=== PATIENT | male | born 1960 | race Caucasian/White ===

== ENCOUNTER 2021-06-25 02:12 | Day surgery (SDC) | payer BC, SELFPAY ==
[2021-06-19 09:06] VITALS: BMI 23.6
[2021-06-25 09:46] VITALS: BP 113/75; PULSE 61; RESP 20; TEMP 36.6; O2SAT 95
[2021-06-25] MEDS: LACTATED RINGERS 1,000 ML 150 ML IV CONT (10:00)
--- NOTE | 2021-06-25 10:10 | WPDANESEPPF ---
Anes - Initial Pre Proc Eval Procedure: Operation Date: 06/25/21 10:30 Proposed Procedures p Screening Colonoscopy - Hakan Dallas MD Date/Time: 06/25/21 10:10 Surgeon: Hakan Dallas MD Pre Op Diagnosis: neoplasm screening Patient Data Age: 60 Gender: M Height: 1.83 m Weight: 77 kg Allergies Allergy/AdvReac Type Severity Reaction Status Date / Time No Known Allergies Allergy Unverified 06/25/21 09:47 Home Medications Medication Instructions Recorded Confirmed Type No Home Medications 05/16/21 06/25/21 History Patient hx anesthesia problems: none Family hx anesthesia problems: none Results Review: All pre-operative results and documents have been reviewed as part of the pre-operative evaluation. [facility] Past Medical History Medical History (Updated 06/25/21 @ 10:12 by Ghulam Carey DO) GERD (gastroesophageal reflux disease) Surgical History Surgical History Status post tendon repair R forearm Family History Family History Father Heart disease Sibling Heart disease Mother Heart disease Breast cancer Social History Social History Smoking status: Never smoker Second hand tobacco smoke exposure: No Alcohol intake: current Drinks per week: 14 Substance use: never Substance use type: does not use Living arrangements: with family Gender identity (if verbalized by the patient): Male Sexual Orientation (if Verbalized by the Patient): Straight or Heterosexual Spiritual care concerns: No Anes - Eval Final PreProcedure Day of Procedure 06/25/21 10:10 Patient weight: normal Heart: regular rate and rhythm Lungs: clear to auscultation and normal air movement Airway: Mallampati scale class III Neurological: alert and oriented Last oral intake: >/= 8 hours ASA classification: III Emergent: no Anesthetic plan: proceed Anesthesia type and monitoring: general GIVS and standard monitoring Results Review: All pre-operative results and documents have been reviewed as part of the pre-operative evaluation. Informed Consent: The patient's anesthetic plan and its attendant risks and benefits were discussed with the patient/family/POA. Questions were solicited and answers provided to the satisfaction of the patient/family/POA.
--- NOTE | 2021-06-25 10:58 | PM.HPGS ---
History of Present Illness History of Present Illness Consent: Risks, benefits, and alternatives have been discussed and questions answered. Patient agrees to proceed with procedure. Chief complaint: neoplasm screening Narrative: Triston Aldridge is a 60 year old male here for first screening colonoscopy Review of Systems Constitutional: Constitutional: Denies headache(s) and Denies weakness Eyes: Eyes: Denies blurry vision ENT: Reports Normal hearing present, Denies headache(s) and Denies neck pain Cardiovascular: Cardiovascular: Denies chest pain and Denies dyspnea Respiratory: Respiratory: Denies dyspnea Gastrointestinal: Gastrointestinal: Reports no additional gastrointestinal complaints Genitourinary: Genitourinary: Denies dysuria Musculoskeletal: Musculoskeletal: Denies neck pain Integumentary/Breasts: Skin/Breast: Denies dry skin Neurologic: Reports Normal hearing present, Denies headache(s) and Denies weakness Psychiatric: Psychiatric: Denies anxiety Endocrine: Endocrine: Denies change in body appearance Hematologic/Lymphatic: Hematologic/Lymphatic: Denies easy bleeding Allergic/Immunologic: Allergic/Immunologic: Denies urticaria [facility] Past Medical History Medical History (Updated 06/25/21 @ 10:58 by Hakan Dallas MD) Colon cancer screening GERD (gastroesophageal reflux disease) Surgical History Surgical History Status post tendon repair R forearm Family History Family History Father Heart disease Sibling Heart disease Mother Heart disease Breast cancer Social History Social History Smoking status: Never smoker Second hand tobacco smoke exposure: No Alcohol intake: current Drinks per week: 14 Substance use: never Substance use type: does not use Living arrangements: with family Gender identity (if verbalized by the patient): Male Sexual Orientation (if Verbalized by the Patient): Straight or Heterosexual Spiritual care concerns: No Meds Home Medications and Allergies Home Medications Medication Instructions Recorded Confirmed Type No Home Medications 05/16/21 06/25/21 History Allergies Allergy/AdvReac Type Severity Reaction Status Date / Time No Known Allergies Allergy Unverified 06/25/21 09:47 Exam Const: General: comfortable and no acute distress HENMT: General nose exam: Normal nares present Eyes: General: appearance normal, both eyes and all related structures Neck: Neck: no JVD Resp: Auscultation: clear to auscultation bilaterally Cardio: Rate: regular rate Rhythm: regular rhythm GI: Inspection: non-distended GI Palp: Yes Soft to palpation Skin: General skin exam: normal color Neuro: General: gait normal Speech: normal speech Extrem: General: normal to inspection Psych: Mental Status: mental status grossly normal Assessment and Plan Assessment and plan (1) Colon cancer screening: Code(s): Z12.11 - Encounter for screening for malignant neoplasm of colon Status: Acute Assessment and Plan: colonoscopy
[2021-06-25 11:26] VITALS: BP 93/58; PULSE 61; RESP 18; O2SAT 97
[2021-06-25 11:36] VITALS: BP 104/64; PULSE 60; RESP 16; O2SAT 97
[2021-06-25 11:46] VITALS: BP 110/73; PULSE 53; RESP 15; O2SAT 100
== END 2021-06-25 12:00 | disposition home or self-care (01) ==
PROVIDERS: PCP Family Medicine; Visit Provider Internal Medicine Gastroenterology
PROC: 0DJD8ZZ Inspection of Lower Intestinal Tract, Via Natural or Artificial Opening Endoscopic (ICD-10-PCS; CPT 45378; principal; 2021-06-25 10:30)
DX: Z12.11 Encounter for screening for malignant neoplasm of colon (principal); D12.8 Benign neoplasm of rectum; K63.5 Polyp of colon; K64.8 Other hemorrhoids; K21.9 Gastro-esophageal reflux disease without esophagitis
CPT/HCPCS: 45385; 88305; J2704; J7120

== ENCOUNTER 2022-04-07 15:37 | Emergency (ER) | payer BC, SELFPAY ==
--- NOTE | ~2022-04-07 | XR_ITS ---
EXAMINATION: XR chest 2V Exam Date/Time: 04/07/2022 16:20 CDT HISTORY: WEAKNESS,PAZ,CONFUSSION, CHEST FLUTTERS X FEW DAYS Comparison: None available. RESULT: Lines, tubes, and devices: None. Lungs and pleura: Clear. Cardiomediastinal silhouette: Unremarkable. Other: No acute osseous or upper abdominal finding. IMPRESSION: No acute cardiopulmonary process. Reviewed, dictated and finalized at location K.
--- NOTE | ~2022-04-07 | CT_ITS ---
EXAMINATION: CT brain wo con DATE: 04/07/2022 18:35 INDICATION: Headache . TECHNIQUE: Computed tomography (CT) of the head was performed without intravenous contrast. The mA wa s adjusted according to patient size. Iterative reconstruction technique was employed. The dose-lengt h product was 605.33 mGy-cm. COMPARISON: None FINDINGS: No acute intracranial hemorrhage or extra-axial fluid collection. No hydrocephalus, mass, or herniation. No acute ischemic infarct. Unremarkable dural venous sinus attenuation. No acute osseous abnormality. The aerated spaces are clear. IMPRESSION: No acute intracranial process. Reviewed, dictated and finalized at location K.
[2022-04-07 15:39] VITALS: BP 129/78; PULSE 67; RESP 16; TEMP 36.6; O2SAT 100
--- NOTE | 2022-04-07 15:45 | PC.NURSE ---
PT'S CAME TO STAFF TO REPORTS PT DIDN'T KBOW WHAT SHOE WENT ON WHICH FOOT AND STATES SOMETHING IS WRONG WITH HIM.
--- NOTE | 2022-04-07 15:46 | ECG_ITS ---
Measurements Intervals [place] Rate: 64 P: 65 [place]: 173 QRS: 29 QRSD: 94 T: 77 QT: 353 QTc: 365 Interpretive Statements SINUS RHYTHM NORMAL ECG Electronically Signed On 04-07-2022 23:13:05 CDT by Mehran Samano D.O.
[2022-04-07 16:06] LABS: Basophils Absolute Auto 0.1 K/mm3 (0.0-0.1); Basophils Percent Auto 0.6 % (0.2-1.2); Eosinophils Absolute Auto 0.1 K/mm3 (0-0.3); Eosinophils Percent Auto 1.5 % (0-4.4); Hematocrit 45.2 % (42.0-52.0); Hemoglobin 15.3 g/dL (14.0-18.0); Immature Granulocyte Absolute 0.02 K/mm3 (0.00-0.031); Immature Granulocyte Percent A 0.3 % (0-0.5); Lymphocytes Absolute Auto 2.08 K/mm3 (0.9-3.2); Lymphocytes Percent Auto 26.7 % (18.3-44.2); Mean Corpuscular HGB Conc 33.8 g/dl (32-36); Mean Corpuscular Hemoglobin 29.8 pg (26-34); Mean Corpuscular Volume 88.1 fl (80-100); Mean Platelet Volume 9.2 fl (7.4-10.4); Monocytes Absolute Auto 0.6 K/mm3 (0.1-0.6); Monocytes Percent Auto 7.1 % (2.6-8.5); Neutrophils Percent Auto 63.8 % (45.5-73.1); Platelet Count Result 194 k/mm3 (150-375); Red Blood Count 5.13 M/mm3 (4.6-6.20); Red Cell Distribution Width 11.9 % (11.5-14.5); White Blood Count 7.8 K/mm3 (4.5-10.0)
[2022-04-07 16:14] LABS: Alanine Aminotransferase 28 U/L (6-50); Albumin Level 4.6 g/dL (3.5-5.1); Alkaline Phosphatase 86 U/L (38-126); Anion Gap 5 mmol/L (8-16); Aspartate Amino Transferase 31 U/L (17-59); Bilirubin,Total 0.6 mg/dL (0.2-1.3); Blood Urea Nitrogen 21 mg/dL (9-20); Carbon Dioxide 29 mmol/L (22-30); Chloride 104 mmol/L (98-107); Estimated Glomerular Filt Rate > 60; Glucose 105 mg/dL (65-110); Potassium 3.9 mmol/L (3.4-5.0); Sodium 138 mmol/L (137-145)
[2022-04-07 16:47] LABS: SARS-CoV-2 RNA PCR Negative
--- NOTE | 2022-04-07 17:40 | ED.HA ---
HPI - Headache General Chief Complaint: Headache Stated Complaint: memory issues x weeks Time Seen by Provider: 04/07/22 17:39 Source: patient Mode of arrival: ambulatory Limitations: no limitations History of Present Illness HPI Narrative: 61 years old white male complaining of uncomfortable pain at the nasal bridge all the way through to the back of his head started 2 weeks ago, constant, 3 out of 10, worse with thinking and using his brain, better on aspirin. Patient 's report that patient lost his weight to his work 1 month ago. Also noticed that taking time to think and sometimes misplace objects, she believes like he cannot think properly for the last few weeks. He denies any fever, chills, nausea, vomiting, vision change, back pain, chest pain or shortness of breath. He denies having similar symptoms but it seems like it is getting worse as long as he is getting older. Patient drove himself daily to work without any trouble. He denies any weakness, numbness or tingling or focal deficits Related Data Home Medications Medication Instructions Recorded Confirmed No Home Medications 05/16/21 06/25/21 Allergies Allergy/AdvReac Type Severity Reaction Status Date / Time No Known Allergies Allergy Unverified 06/25/21 09:47 Review of Systems Review of Systems: All systems reviewed & are unremarkable except as noted in HPI and below PMFSH Past Medical History Medical History Colon cancer screening GERD (gastroesophageal reflux disease) Surgical History Surgical History Status post tendon repair R forearm Family History Family History Father Heart disease Sibling Heart disease Mother Heart disease Breast cancer Social History Social History Smoking status: Never smoker Second hand tobacco smoke exposure: No Alcohol intake: current Drinks per week: 14 Substance use: never Substance use type: does not use Gender identity (if verbalized by the patient): Male Sexual Orientation (if Verbalized by the Patient): Straight or Heterosexual Spiritual care concerns: No Course Course Emergency Course: Work-up today did not show any significant finding to explain patient condition. MRI of the brain is my recommendation. Patient does not to be hospitalized today because his symptoms been going for the last 4 weeks, intermittent. Depression, anxiety could be the underlying cause of his symptoms or the beginning of dementia. Vital Signs Vital signs: Vital Signs Temperature 36.6 C 04/07/22 15:39 Pulse Rate 67 04/07/22 15:39 Respiratory Rate 16 04/07/22 15:39 Blood Pressure 129/78 04/07/22 15:39 Pulse Oximetry 100 04/07/22 15:39 Oxygen Delivery Room Air 04/07/22 15:39 Temperature 36.6 C 04/07/22 15:39 Pulse Rate 60 04/07/22 19:18 Respiratory Rate 17 04/07/22 19:18 Blood Pressure 115/75 04/07/22 19:18 Pulse Oximetry 98 04/07/22 19:18 Oxygen Delivery Room Air 04/07/22 15:39 MDM - Headache Lab Data Result diagrams: 04/07/22 15:50 04/07/22 15:50 Labs: Lab Results 04/07/22 04/07/22 04/07/22 Range/Units 15:50 15:50 15:53 WBC 7.8 (4.5-10.0) K/mm3 RBC 5.13 (4.6-6.20) M/mm3 Hgb 15.3 (14.0-18.0) g/dL Hct 45.2 (42.0-52.0) % MCV 88.1 (80-100) fl MCH 29.8 (26-34) pg MCHC 33.8 (32-36) g/dl RDW 11.9 (11.5-14.5) % Plt Count 194 (150-375) k/mm3 MPV 9.2 (7.4-10.4) fl Immature Gran % (Auto) 0.3 (0-0.5) % Neut % (Auto) 63.8 (45.5-73.1) % Lymph % (Auto) 26.7 (18.3-44.2) % [place] % (Auto) 7.1 (2.6-8.5) % Eos % (Auto) 1.5 (0-4.4) % Baso % (Auto) 0.6 (0.2-1.2) % Lymph # (Auto) 2.08 (0.9-3.2) K/mm3 [place] # (Auto) 0.6 (0.1-0.6) K/m
[2022-04-07 17:41] LABS: Appearance Urine Clear (Clear); Bilirubin Urine Negative (Negative); Color Urine Yellow (Yellow); Glucose Urine UA Negative (Negative); Ketones Urine Negative (Negative); Leukocyte Esterase Ur Negative LEU/UL (Negative); Nitrate Urine Negative (Negative); Protein Urine Negative (Negative); Urobilinogen Urine 0.2 mg/dL (<2.0)
[2022-04-07 17:49] LABS: Mucus Urine Rare /lpf; RBC Urine 0-2 /hpf (0-2)
[2022-04-07 17:54] LABS: Add Urine Microscopic? YES; Blood Urine Trace-Intact (Negative)
[2022-04-07 19:18] VITALS: BP 115/75; PULSE 60; RESP 17; O2SAT 98
--- NOTE | 2022-04-07 19:18 | PC.NURSE ---
ASsumed care of pt at this time. Pt alert and upright on stretcher, updated on POC.
[2022-04-07 19:51] VITALS: BP 119/75; PULSE 60; RESP 14; O2SAT 98
== END 2022-04-07 19:52 | disposition home or self-care (01) ==
PROVIDERS: Emergency Medicine; Emergency Provider Emergency Medicine; PCP Family Medicine
DX: R51.9 Headache, unspecified (principal); Z20.822 Contact with and (suspected) exposure to COVID-19; K21.9 Gastro-esophageal reflux disease without esophagitis
CPT/HCPCS: 36415; 70450; 71046; 80053; 81001; 85025; 93005; 99284; C9803; U0003; U0005

== ENCOUNTER 2022-04-17 14:55 | Outpatient (CLI) | payer BC, SELFPAY ==
--- NOTE | ~2022-04-17 | MR_ITS ---
EXAMINATION: MR brain/brain stem wo/w con DATE: 04/17/2022 15:43 INDICATION: Headaches. Memory loss. TECHNIQUE: Magnetic resonance imaging (MRI) of the brain and brainstem was performed without and with 15 cc MultiHance intravenous contrast. Sequences included sagittal and axial T1-weighted SE, axial diffusion-weighted FS SE, axial T2*-weighted GRE, axial T2-weighted FLAIR Propeller, and axial T2-ayesha ghted Propeller. Apparent diffusion coefficient (ADC) maps were created. COMPARISON: No prior studies for comparison. . FINDINGS: Brain parenchymal volume is normal. No acute intracranial hemorrhage or infarction. No vent riculomegaly or midline shift. Normal chaudhry-white differentiation. No ventriculomegaly or midline shif t. Structures of the posterior fossa including 7/8th cranial nerve complexes are unremarkable. Midlin e sagittal images demonstrate a normal corpus callosum and craniovertebral junction. Pituitary is bryant ssly unremarkable. No abnormal contrast enhancement. There is a small mucous retention cyst left maxi llary sinus. Orbits are symmetric without disconjugate gaze. IMPRESSION: 1. No acute intracranial abnormality. Reviewed, dictated and finalized at location A.
[2022-04-17 15:21] LABS: Estimated Glomerular Filt Rate > 60
== END 2022-04-17 14:56 | disposition home or self-care (01) ==
PROVIDERS: PCP Family Medicine; Visit Provider Nurse Practitioner Family
DX: R41.3 Other amnesia (principal); R51.9 Headache, unspecified
CPT/HCPCS: 70553; A9577

== ENCOUNTER 2022-04-19 16:48 | Outpatient (CLI) | payer BC, SELFPAY ==
--- NOTE | ~2022-04-19 | US_ITS ---
EXAMINATION: US carotid duplex BI DATE: 04/19/2022 17:21 INDICATION: Amnesia. Headaches. TECHNIQUE: Grayscale, color Doppler, and pulsed Doppler images of the cervical carotid arteries were obtained. The degree of vessel stenosis is placed in one of the following categories: normal, <50%, 5 0-69%, >=70% but less than near-occlusion, near-occlusion, or total occlusion. Note that percent sten osis relative to normal distal artery lumen diameter is indirectly measured from velocity measurement s as described by Huseyin, et al. Radiology 2003; 229:340-346. Notes: Normal: Peak systolic velocity <125 centimeters/sec and no plaque <50%. Peak systolic velocity <125 ( EDV <40; ICA/CCA PSV ratio <2.0; used these factors only a tandem lesions or low cardiac output or co ntralateral disease) 50-69 %: PSV 125-230 (EDV 40-100; ratio 2-4) >= 70% but less than near occlusion: PSV greater than 230 (EDV > 100; ratio> 4.0) Near Occlusion: PSV that is variable; markedly narrowed lumen Occlusion: Absent flow on color/spectral Doppler and no lumen on chaudhry scale. COMPARISON: None. FINDINGS: RIGHT: The right common carotid artery (CCA) peak systolic velocity (PSV) is 101 cm/s. The right internal ca rotid artery (ICA) PSV is 96 cm/s. The right ICA end-diastolic velocity (EDV) is 8 cm/s. The right IC A/CCA PSV ratio is 0.9. The external carotid artery (ECA) PSV is 108 cm/s. There is antegrade flow in the right vertebral artery. LEFT: The left CCA PSV is 140 cm/s. The left ICA PSV is 106 cm/s. The left ICA EDV is 28 cm/s. The left ICA /CCA PSV ratio is 0.8. The ECA PSV is 89 cm/s. There is antegrade flow in the left vertebral artery. IMPRESSION: 1. Less than 50% stenosis in the right internal carotid artery by sonographic criteria. 2. Less than 50% stenosis in the left internal carotid artery by sonographic criteria. Reviewed, dictated and finalized at location A. IMPRESSION: 1. Less than 50% stenosis in the right internal carotid artery by sonographic damian adams. 2. Less than 50% stenosis in the left internal carotid artery by sonographic akbar piña.
== END 2022-04-19 16:49 | disposition home or self-care (01) ==
PROVIDERS: PCP Family Medicine; Visit Provider Nurse Practitioner Family
DX: E78.5 Hyperlipidemia, unspecified (principal); R41.3 Other amnesia; R51.9 Headache, unspecified; I65.23 Occlusion and stenosis of bilateral carotid arteries
CPT/HCPCS: 93880

== ENCOUNTER 2023-07-07 08:13 | Outpatient (CLI) | payer BC, SELFPAY ==
--- NOTE | ~2023-07-07 | XR_ITS ---
EXAMINATION: XR shoulder RT min 2V DATE: 07/07/2023 08:31 INDICATION: Chronic right shoulder pain TECHNIQUE: AP internally and externally rotated, AP oblique externally rotated and transscapular Y vi ews of the right shoulder were obtained. COMPARISON: None FINDINGS: Normal alignment. No fracture. Glenohumeral and acromioclavicular osteoarthritis. Soft tissues are u nremarkable. The visualized portions of the lungs are clear. IMPRESSION: Mild right glenohumeral and acromioclavicular osteoarthritis. Reviewed, dictated and finalized at location A.
== END 2023-07-07 08:14 | disposition home or self-care (01) ==
PROVIDERS: PCP Family Medicine; Visit Provider Physician Assistant
DX: M19.011 Primary osteoarthritis, right shoulder (principal)
CPT/HCPCS: 73030

== ENCOUNTER 2023-08-29 09:59 | Outpatient (CLI) | payer BC, SELFPAY ==
--- NOTE | ~2023-08-29 | XR_ITS ---
XR lumbar spine 2-3V 08/29/2023 10:13 Indication: Low back pain Procedure: 3 views lumbar spine Comparison: No prior studies for comparison. Findings: There is wedge-shaped deformity of T12 and L1, likely chronic. There is disc narrowing at L 1-2, L2-3 and L3-4. Mild lower lumbar facet hypertrophy. Pedicles intact. Sacral foramen are symmetri c. No acute fracture is identified. Impression: 1: Moderate lumbar spondylosis. Reviewed, dictated and finalized at location B. DER FRAME TENDER Impression: 1: Moderate lumbar spondylosis.
== END 2023-08-29 10:00 | disposition home or self-care (01) ==
PROVIDERS: PCP Family Medicine; Visit Provider Physician Assistant
DX: M47.896 Other spondylosis, lumbar region (principal)
CPT/HCPCS: 72100

== ENCOUNTER 2025-07-07 06:37 | Outpatient (CLI) | payer MEDICARE, SELFPAY ==
--- OUTSIDE RECORDS SUMMARY | 2025-07-07 06:47 | XMS_ITS | Clinical Summary ---
Author Organization [facility] Address [address] [place] [address] Care Team Providers Care Slab Depiler Operator Name Role Phone Darryl Neri MD Primary Care Provider [phone] Medications ibuprofen (MOTRIN) 200 MG tablet Take 400 mg by mouth as needed for Pain. Active Active Problems Problem Noted Date Diagnosed Date Syncope 10/02/2022 Family History Medical History Relation Comments CABG Brother 1 Coronary artery disease Brother 1 Heart Attack Brother 1 Hyperlipidemia Brother 1 Hypertension Brother 1 Stent Cardiac Brother 1 Heart Attack Father Hypertension Father CHF Mother Hypertension Mother Open Heart Mother Pacemaker Mother Valve Disease Mother Valve Disease Sister 2 Relation Status Comments Brother 1 Brother 2 Alive Father (Age 62) Mother Alive Sister 1 Alive Sister 2 Alive Sister 3 Alive Sister 4 Alive Sister 5 Alive Social History Tobacco Use Types Packs/Day Years Used Date Smoking Tobacco: Never Smokeless Tobacco: Never Tobacco Cessation:Counseling Given: Not Answered Alcohol Use Standard Drinks/Week Comments Yes 0 (1 standard drink = 0.6 oz pur e alcohol) PHQ-2 Answer Date Recorded Patient Health Questionnaire-2 Score 0 09/06/2022 Sex and Gender Information Value Date Recorded Sex Assigned at Not on file Legal Sex Male 10:59 AM CDT Gender Identity Not on file Sexual Orientation Not on file Last Filed Vital Signs Vital Sign Reading Time Taken Comments Blood Pressure 122/70 10/07/2022 1:09 PM INFORMATICA MDM DEVELOPER Pulse 70 10/07/2022 1:09 PM INFORMATICA MDM DEVELOPER Temperature 36.4 C (97.5 F) 09/06/2022 9:22 AM INFORMATICA MDM DEVELOPER Respiratory Rate 18 09/06/2022 9:22 AM INFORMATICA MDM DEVELOPER Oxygen Saturation 97% 09/06/2022 9:22 AM INFORMATICA MDM DEVELOPER Inhaled Oxygen Concentration - - Weight 83.9 kg (185 lb) 10/07/2022 1:09 PM INFORMATICA MDM DEVELOPER Height 180.3 cm (5' 11) 10/07/2022 1:09 PM INFORMATICA MDM DEVELOPER Body Mass Index 25.8 10/07/2022 1:09 PM INFORMATICA MDM DEVELOPER Plan of Treatment Health Maintenance Due Date Last Done Comments Colorectal Cancer Screening Colonoscopy (10 Years) 1960 Hepatitis C 11/19/1977 DTaP, Tdap and Td Vaccines ( 1 - Tdap) 11/19/1978 Pneumococcal Vaccine: 50+ Years (1 of 1 - PCV) 11/19/2009 Zoster Vaccines (1 of 2) 11/19/2009 COVID-19 Vaccine (3 - 2024-2 6 season) 2025 12/31/2020, 12/10/2020 Influenza Adult (#1) 2025 RSV Immunization or 60+ Years (1 - 1-dose 75+ series) 11/19/2034 Hepatitis A Vaccines Aged Out No long er eligible based on patient's age to complete this topic Meningococcal B Vaccine Aged Out No l onger eligible based on patient's age to complete this topic Meningococcal Vaccine Aged Out No vita all eligible based on patient's age to complete this topic RSV Immunizations Under 20 Months Aged Out No longer eligible b ased on patient's age to complete this topic Insurance [facility] Care Teams Slab Depiler Operator Relationship Specialty Start Date End Date Darryl Neri MD [address] [place] [address] PCP - General FAMILY PRACTICE 04/23/22
[2025-07-07 09:14] LABS: Hematocrit 44.9 % (42.0-52.0); Hemoglobin 15.1 g/dL (14.0-18.0); Mean Corpuscular HGB Conc 33.6 g/dl (32-36); Mean Corpuscular Hemoglobin 29.6 pg (26-34); Mean Corpuscular Volume 88.0 fl (80-100); Platelet Count Result 199 k/mm3 (150-375); Red Blood Count 5.10 M/mm3 (4.6-6.20); White Blood Count 6.5 K/mm3 (4.5-10.0)
[2025-07-07 09:42] LABS: Alanine Aminotransferase 27 U/L (6-50); Albumin Level 4.2 g/dL (3.5-5.1); Alkaline Phosphatase 67 U/L (38-126); Anion Gap 8 mmol/L (4-12); Aspartate Amino Transferase 34 U/L (17-59); Bilirubin,Total 1.5 mg/dL (0.2-1.3); Blood Urea Nitrogen 27 mg/dL (9-20); Calcium 8.9 mg/dL (8.4-10.2); Carbon Dioxide 27 mmol/L (22-30); Chloride 104 mmol/L (98-107); Cholesterol 187 mg/dL (0-200); Estimated Glomerular Filt Rate > 60; Glucose 102 mg/dL (65-110); HDL Direct 45 mg/dL; Potassium 4.0 mmol/L (3.4-5.0); Sodium 139 mmol/L (137-145); Total Protein 6.8 g/dL (6.3-8.2); Triglycerides 83 mg/dL (<150)
[2025-07-07 10:17] LABS: Thyroid Stimulating Hormone 0.970 uIU/mL (0.465-4.680)
[2025-07-07 19:34] LABS: Prostate Specific Antigen 0.7 ng/mL (< OR = 4.0)
[2025-07-07 21:04] LABS: Hemoglobin A1C 5.3 % (<5.7)
== END 2025-07-07 06:38 | disposition home or self-care (01) ==
PROVIDERS: PCP Family Medicine; Visit Provider Physician Assistant Medical
DX: E78.5 Hyperlipidemia, unspecified (principal); R73.01 Impaired fasting glucose; Z00.00 Encounter for general adult medical examination without abnormal findings
CPT/HCPCS: 36415; 80053; 80061; 83036; 84153; 84443; 85027

== ENCOUNTER 2025-07-18 09:29 | Outpatient (CLI) | payer MEDICARE, SELFPAY ==
--- NOTE | ~2025-07-18 | US_ITS ---
EXAMINATION: US scrotum doppler DATE: 07/18/2025 11:01 INDICATION: Other specified disorders of male genital organs with slight left- sided scrotal pain TECHNIQUE: Testicular sonogram utilizing grayscale and Doppler COMPARISON: None. FINDINGS: The right testis measures 5.9 x 3.7 x 2.5 cm. The left testis measures 4.6 x 3.4 x 3.4 cm. Symmetric normal grayscale appearance to both testes. There is normal vascular flow to both testes. Anechoic 6 mm right epididymal cyst. The right epididymis is otherwise normal with normal vascular flow. 3.1 cm and 1.3 cm anechoic cyst at the head of the left epididymis. The left epididymis is otherwise normal with normal vascular flow. There is no varicocele. There are small bilateral hydroceles with low-level mobile internal echoes. IMPRESSION: 1. Bilateral epididymal head cysts. Otherwise normal bilateral testes and epididymides. 2. Small bilateral potentially complex hydroceles with numerous tiny mobile internal echoes. Reviewed, dictated and finalized at location A. IMPRESSION: 1. Bilateral epididymal head cysts. Otherwise normal bilateral testes and epid idymides. 2. Small bilateral potentially complex hydroceles with numerous tiny mobile int ernal echoes.
--- OUTSIDE RECORDS SUMMARY | 2025-07-18 10:20 | XMS_ITS | Clinical Summary ---
Author Organization [facility] Address [address] [place] [address] Care Team Providers Care Manager Fleet Name Role Phone Darryl Neri MD Primary Care Provider [phone] Medications ibuprofen (MOTRIN) 200 MG tablet Take [...] Comments Blood Pressure 122/70 10/07/2022 1:09 PM PIPE FITTER HELPER Pulse 70 10/07/2022 1:09 PM PIPE FITTER HELPER Temperature 36.4 C (97.5 F) 09/06/2022 9:22 AM PIPE FITTER HELPER Respiratory Rate 18 09/06/2022 9:22 AM PIPE FITTER HELPER Oxygen Saturation 97% 09/06/2022 9:22 AM PIPE FITTER HELPER Inhaled Oxygen Concentration - - Weight 83.9 kg (185 lb) 10/07/2022 1:09 PM PIPE FITTER HELPER Height 180.3 cm (5' 11) 10/07/2022 1:09 PM PIPE FITTER HELPER Body Mass Index 25.8 10/07/2022 1:09 PM PIPE FITTER HELPER Plan of Treatment Health Maintenance Due Date [...] patient's age to complete this topic Insurance [facility] Care Teams Manager Fleet Relationship Specialty Start Date End Date Darryl Neri MD [address] [place] [address] PCP - General FAMILY PRACTICE 04/23/22
== END 2025-07-18 09:30 | disposition home or self-care (01) ==
PROVIDERS: PCP Family Medicine; Visit Provider Physician Assistant Medical
DX: N50.3 Cyst of epididymis (principal)
CPT/HCPCS: 76870; 93976